=== PATIENT | female | born 1955 | race Caucasian/White ===

== ENCOUNTER 2018-12-14 16:04 | Emergency (ER) | payer OTHER ==
[~2018-12-14] VITALS: Ht 167.6 cm; Wt 105.2 kg
[2018-12-14] MEDS ORDERED: PREDNISONE 5MG (16:23)
[2018-12-14] MEDS ORDERED: ISOSORBIDE DINI20 MG (16:24)
[2018-12-14] MEDS ORDERED: METOPROLOL SUCC25 MG (16:24)
== END 2018-12-14 20:54 | disposition home or self-care (01) ==
LOC: ER 16:04
DX: K52.89 Other specified noninfective gastroenteritis and colitis (principal); R21 Rash and other nonspecific skin eruption; E86.0 Dehydration

== ENCOUNTER 2022-09-05 15:48 | Emergency (ER) | payer OTHER ==
[~2022-09-05] VITALS: Ht 165.1 cm; Wt 86.2 kg
[~2022-09-05 15:48] MED LIST: ISOSORBIDE DINI20 MG; METOPROLOL SUCC25 MG; PREDNISONE 5MG
[2022-09-05] MEDS ORDERED: ZIPSOR25 MG PO (16:31)
[2022-09-05] MEDS ORDERED: NEURONTIN300 MG PO (16:31)
[2022-09-05] MEDS ORDERED: TOPROL XL25 M1 PO (16:32)
[2022-09-05] MEDS ORDERED: VALSARTAN40 MG PO (16:32)
[2022-09-05] MEDS ORDERED: MILLIPRED5 MG PO (16:32)
== END 2022-09-05 20:09 | disposition home or self-care (01) ==
LOC: ER
DX: B02.8 Zoster with other complications (principal); Z88.0 Allergy status to penicillin; Z88.6 Allergy status to analgesic agent; I10 Essential (primary) hypertension